=== PATIENT | female | born 1935 ===

== ENCOUNTER 2020-05-06 23:36 | Inpatient (IN) | payer MEDICARE, OTHER ==
[2020-05-07] MEDS ORDERED: Non-Formulary Item 1 EACH (Fluticasone Propionate [Flovent Diskus] 50 MCG Blst.W.Dev) IH PRN (07:46)
[2020-05-07] MEDS ORDERED: Mometasone Furoate 120 PUFF 220 MCG INH PRN (08:00)
[2020-05-07] MEDS ORDERED: Docusate 100 MG CAP PO SCH (09:00)
[2020-05-07] MEDS ORDERED: NYSTATIN 1000000 UNIT MC SCH (09:00)
[2020-05-07] MEDS ORDERED: Non-Formulary Item 1 EACH (Magnesium Oxide [Magnesium] 400 MG Capsule) PO SCH (09:00)
[2020-05-07] MEDS ORDERED: Non-Formulary Item 1 EACH (Esomeprazole Magnesium [Esomeprazole Magnesium] 20 MG Capsule. PO SCH (09:00)
[2020-05-07] MEDS ORDERED: FLU VACC QS2020-21(65YR UP)/PF 240 MCG/0.7 ML SYRINGE IM ONE (09:00)
[2020-05-07] MEDS ORDERED: AMLODIPINE BESYLATE 10 MG PO SCH (09:00)
[2020-05-07] MEDS: Milk Of Magnesia 30 ML UDCUP PO SCH (09:16)
[2020-05-07] MEDS: Nystatin Powder 15 GM BOT TOP SCH ×3 (09:16→20:21)
[2020-05-07] MEDS: Hydrochlorothiazide 25 MG TAB PO SCH (09:16)
[2020-05-07] MEDS: Amlodipine 5 MG TAB PO SCH (09:17)
[2020-05-07] MEDS: Magnesium Oxide 400 MG TAB PO SCH (09:17)
[2020-05-07] MEDS: Docusate 100 MG CAP PO SCH ×2 (09:18→20:20)
[2020-05-07] MEDS: [UNRECOGNIZED DRUG - OTHER] EA EYE SCH ×2 (09:19→20:22)
[2020-05-07 09:38] LABS: ALT (SGPT) 20 U/L (8-55); AST (SGOT) 28 U/L (5-34); Albumin 3.4 g/dL (3.4-4.8); Alkaline Phosphatase 112 U/L (40-110); Anion Gap 14 mmol/L (10-20); BUN (Urea Nitrogen) 25 mg/dL (9.8-20.1); Bilirubin, Total 0.2 mg/dL (0.2-1.2); Calc. Creatinine Clearance 0 mL/min (70-130); Calcium 8.7 mg/dL (7.8-10.44); Carbon Dioxide 26 mmol/L (23-31); Chloride 103 mmol/L (98-107); Estimated GFR-MDRD 75; Globulin 3.3 g/dL (2.4-3.5); Glucose 117 mg/dL (83-110); Potassium 3.8 mmol/L (3.5-5.1); Protein, Total 6.7 g/dL (6.0-8.3); Sodium 139 mmol/L (136-145)
[2020-05-07 10:07] LABS: Hemoglobin 12.8 g/dL (12.0-16.0); MDiff Complete? YES; Manual Diff?? YES; Mean Corpuscular HGB CONC 30.6 g/dL (32.0-36.0); Mean Corpuscular Hemoglobin 26.7 pg (27.0-31.0); Mean Corpuscular Volume 87.1 fL (78.0-98.0); Neutrophil 57 % (42-75); Platelet Count 195 thou/uL (130-400); RBC Distribution Width 14.8 % (11.5-14.5); Red Blood Cell (RBC) Count 4.78 mill/uL (4.20-5.40); White Blood Cell (WBC) Count 3.6 thou/uL (4.8-10.8)
[2020-05-07 10:08] LABS: Lymphocytes 31 % (21-51); Monocytes 12 % (0-10)
[2020-05-07 10:09] LABS: RBC Morphology Normal
[2020-05-07] MEDS: Acetaminophen 325 MG TAB PO SCH ×3 (12:08→23:01)
[2020-05-07] MEDS ORDERED: Non-Formulary Item 1 EACH (Aluminum & Magnesium Hydroxide [Maalox] 30 ML Udcup) PO SCH (14:00)
[2020-05-07] MEDS ORDERED: BUSPIRONE HCL 10 MG PO SCH (14:00)
[2020-05-07] MEDS: busPIRone HCl 5 MG TAB PO SCH ×2 (14:12→20:20)
[2020-05-07] MEDS: Mag-Al Plus 1200 MG/1200 MG/120 MG/30 ML UDCUP PO SCH ×2 (15:13→20:22)
[2020-05-07] MEDS ORDERED: MINERAL OIL EA EYE SCH (18:30)
[2020-05-07] MEDS ORDERED: MINERAL OIL LIGHT EA EYE SCH (18:30)
[2020-05-07] MEDS ORDERED: [UNRECOGNIZED DRUG - OTHER] EA EYE SCH (18:30)
[2020-05-07] MEDS: Donepezil HCl 10 MG TAB PO SCH (20:21)
[2020-05-08] MEDS: Acetaminophen 325 MG TAB PO SCH ×4 (05:36→23:15)
[2020-05-08] MEDS: Mag-Al Plus 1200 MG/1200 MG/120 MG/30 ML UDCUP PO SCH ×3 (05:36→20:06)
[2020-05-08] MEDS: busPIRone HCl 5 MG TAB PO SCH ×3 (05:36→20:07)
[2020-05-08] MEDS: Docusate 100 MG CAP PO SCH ×2 (08:13→20:03)
[2020-05-08] MEDS: Milk Of Magnesia 30 ML UDCUP PO SCH (08:13)
[2020-05-08] MEDS: Magnesium Oxide 400 MG TAB PO SCH (08:14)
[2020-05-08] MEDS: Hydrochlorothiazide 25 MG TAB PO SCH (08:14)
[2020-05-08] MEDS: Amlodipine 5 MG TAB PO SCH (08:15)
[2020-05-08] MEDS: [UNRECOGNIZED DRUG - OTHER] EA EYE SCH ×2 (08:16→19:33)
[2020-05-08] MEDS: Nystatin Powder 15 GM BOT TOP SCH ×3 (08:23→20:07)
--- NOTE | 2020-05-08 16:03 | PRG ---
DATE OF SERVICE: 05/08/2020 SUBJECTIVE: Ms. Harman is resting in bed. Denies any complaints. Denies any chest pain or shortness of breath. Discussed with nursing. Tolerating her p.o. intake. No family at bedside. OBJECTIVE: VITAL SIGNS: She is afebrile, heart rate 59, respirations 19, oxygen saturation 98% on room air, blood pressure 133/60. CARDIOVASCULAR SYSTEM: S1 and S2 plus. RESPIRATORY SYSTEM: Normal vesicular breath sounds heard in all lung diaz. ABDOMEN: Soft and nontender. Bowel sounds heard in all quadrants. EXTREMITIES: Without cyanosis or clubbing. CENTRAL NERVOUS SYSTEM: Awake and responsive. Mild cognitive deficits are noted. Grossly nonfocal. IMPRESSION: 1. COVID-19 positive. 2. Hypertension. 3. Dementia. 4. Possible anxiety. 5. Reactive airway disease, possible asthma. PLAN: 1. Continue current medications. 2. Nutritional support. 3. Respiratory droplet precautions. 4. Monitor respiratory status for any symptoms. 5. Routine laboratory values. 6. Continue home medications. 7. DVT prophylaxis with PlexiPulses. 8. Decubitus precautions. 9. Stress ulcer prophylaxis. Job ID: [id number]
[2020-05-08] MEDS: Donepezil HCl 10 MG TAB PO SCH (20:03)
[2020-05-09] MEDS: Mag-Al Plus 1200 MG/1200 MG/120 MG/30 ML UDCUP PO SCH ×3 (05:09→20:03)
[2020-05-09] MEDS: Acetaminophen 325 MG TAB PO SCH ×4 (05:09→23:17)
[2020-05-09] MEDS: busPIRone HCl 5 MG TAB PO SCH ×3 (05:09→20:03)
[2020-05-09] MEDS: Hydrochlorothiazide 25 MG TAB PO SCH (08:12)
[2020-05-09] MEDS: Milk Of Magnesia 30 ML UDCUP PO SCH (08:13)
[2020-05-09] MEDS: Docusate 100 MG CAP PO SCH ×2 (08:13→20:04)
[2020-05-09] MEDS: Magnesium Oxide 400 MG TAB PO SCH (08:13)
[2020-05-09] MEDS: Amlodipine 5 MG TAB PO SCH (08:13)
[2020-05-09] MEDS: Nystatin Powder 15 GM BOT TOP SCH ×3 (08:14→20:03)
[2020-05-09] MEDS: [UNRECOGNIZED DRUG - OTHER] EA EYE SCH ×2 (08:15→20:04)
--- NOTE | 2020-05-09 16:51 | PRG ---
DATE OF SERVICE: 05/09/2020 SUBJECTIVE: Ms. Harman is doing the same, resting in bed. She had her lunch. Denies any chest pain or shortness of breath. Denies any fever or chills. Discussed with nursing. OBJECTIVE: VITAL SIGNS: She is afebrile, heart rate 61, respirations 18, oxygen saturation 97% on room air, blood pressure 135/60. CARDIOVASCULAR: S1 and S2 plus. RESPIRATORY: Normal vesicular breath sounds. ABDOMEN: Soft and nontender. Bowel sounds heard in all quadrants. EXTREMITIES: Without cyanosis or clubbing. CENTRAL NERVOUS SYSTEM: Grossly nonfocal. IMPRESSION: 1. COVID-19 infection, asymptomatic. 2. Dementia. 3. Hypertension. 4. Possible asthma. 5. Anxiety and depression. PLAN: 1. Continue current medications. 2. Nutritional support with low-sodium diet. 3. Respiratory droplet precautions. 4. Monitor respiratory status. 5. DVT prophylaxis with PlexiPulses. 6. Decubitus precaution. 7. Stress ulcer prophylaxis. 8. Dr. Winston [facility]. Job ID: [id number]
[2020-05-09] MEDS: Donepezil HCl 10 MG TAB PO SCH (20:03)
[2020-05-10] MEDS: Acetaminophen 325 MG TAB PO SCH ×3 (05:13→17:51)
[2020-05-10] MEDS: busPIRone HCl 5 MG TAB PO SCH ×3 (05:13→21:03)
[2020-05-10] MEDS: Mag-Al Plus 1200 MG/1200 MG/120 MG/30 ML UDCUP PO SCH ×3 (05:13→21:02)
--- NOTE | 2020-05-10 07:08 | HP ---
HISTORY OF PRESENT ILLNESS: The patient is a demented elderly lady with hypertension and reactive airways disease, who has been found to be COVID positive. She has been unable to be isolated at the [facility] and therefore was transferred to the hospital for isolation. She also is needing physical therapy, but is unable to have this at the [facility] because of the lack of personal protection equipment. At this time, she is awake and alert, being fed, but is eating well. She is having no cough or shortness of breath. She does have a rare wheeze and has a history of asthma. PAST MEDICAL HISTORY: Only remarkable for hypertension, dementia, asthma, and anxiety. SOCIAL HISTORY: She lives in the [facility]. She is a nonsmoker, nondrinker. FAMILY MEDICAL HISTORY: Noncontributory. REVIEW OF SYSTEMS: Completely negative, but the patient is a poor historian secondary to dementia. PHYSICAL EXAMINATION: GENERAL: The patient is an elderly white female, in no acute distress. She is oriented to person, but not to place and time. VITAL SIGNS: Showed to have blood pressure of 121/58, pulse 67, O2 saturations 98% on room air. She is afebrile. HEENT: Pupils are equal, round, and reactive to light and accommodation. Sclerae are anicteric. Conjunctivae pale. Oral mucous membranes well hydrated. NECK: Supple. There are no nodes or masses. JVP is not elevated. LUNGS: Clear. CARDIAC: Showed regular rhythm. ABDOMEN: Soft and nontender. NEUROLOGICAL: Shows no focal findings. LABORATORY DATA: Shows a white count of 3600, hematocrit 41, hemoglobin 12. Sodium is 139, potassium 3.8, chloride 103, bicarb 26, BUN 25, creatinine 0.74, glucose 117, alkaline phosphatase 112, total protein 6.7, albumin 3.4, and globulin 3.3. ASSESSMENT AND PLAN: An 84-year-old white female, with history of asthma, recent diagnosis of COVID infection, who was admitted to swing bed for PT and for isolation. She will be continued on her home medications of amlodipine 10 mg daily, omeprazole 10 mg daily, hydrochlorothiazide 25 mg daily, Namenda 10 mg twice daily, Seroquel 25 mg daily as well as KCl 20 mEq daily. She will also be given stress ulcer prophylaxis with pantoprazole but will not be given DVT prophylaxis because of fall risk. Her prognosis is somewhat guarded because of an elderly age and comorbidities and will be monitored closely for deterioration and need for a more intensive respiratory therapy. She is not to be resuscitated and has a hospital advance directive. Job ID: [id number]
[2020-05-10] MEDS: Docusate 100 MG CAP PO SCH ×2 (08:10→21:03)
[2020-05-10] MEDS: Hydrochlorothiazide 25 MG TAB PO SCH (08:10)
[2020-05-10] MEDS: Amlodipine 5 MG TAB PO SCH (08:10)
[2020-05-10] MEDS: Magnesium Oxide 400 MG TAB PO SCH (08:11)
[2020-05-10] MEDS: Milk Of Magnesia 30 ML UDCUP PO SCH (08:11)
[2020-05-10] MEDS: Nystatin Powder 15 GM BOT TOP SCH ×3 (08:11→21:04)
[2020-05-10] MEDS: [UNRECOGNIZED DRUG - OTHER] EA EYE SCH ×2 (08:12→21:04)
--- NOTE | 2020-05-10 13:14 | PRG ---
DATE OF SERVICE: 05/07/2020 SUBJECTIVE: The patient is lying in bed, resting well with no complaints. Has been eating well with no cough, shortness of breath. OBJECTIVE: VITAL SIGNS: Temperature is 97.8, pulse 75, respirations 18, O2 sats 97% on room air, blood pressure 156/80. LUNGS: Clear. CARDIAC: Showed regular rhythm. ABDOMEN: Soft and nontender. NEUROLOGIC: Shows no focal findings. ASSESSMENT: 1. Asymptomatic COVID-19 infection. 2. Dementia. 3. Deconditioning. 4. Possible asthma. PLAN: PT, OT consult. DVT and stress ulcer prophylaxis. Continue respiratory isolation. Job ID: [id number]
[2020-05-10] MEDS: Donepezil HCl 10 MG TAB PO SCH (21:02)
[2020-05-11] MEDS: Acetaminophen 325 MG TAB PO SCH ×4 (00:35→17:43)
[2020-05-11] MEDS: Mag-Al Plus 1200 MG/1200 MG/120 MG/30 ML UDCUP PO SCH ×3 (06:02→21:04)
[2020-05-11] MEDS: busPIRone HCl 5 MG TAB PO SCH ×3 (06:03→21:04)
[2020-05-11] MEDS: Amlodipine 5 MG TAB PO SCH (08:01)
[2020-05-11] MEDS: Milk Of Magnesia 30 ML UDCUP PO SCH (08:03)
[2020-05-11] MEDS: Docusate 100 MG CAP PO SCH ×2 (08:03→21:04)
[2020-05-11] MEDS: Hydrochlorothiazide 25 MG TAB PO SCH (08:03)
[2020-05-11] MEDS: Magnesium Oxide 400 MG TAB PO SCH (08:03)
[2020-05-11] MEDS: Nystatin Powder 15 GM BOT TOP SCH ×3 (08:04→21:46)
[2020-05-11] MEDS: [UNRECOGNIZED DRUG - OTHER] EA EYE SCH (08:04)
--- NOTE | 2020-05-11 09:23 | PRG ---
DATE OF SERVICE: 05/10/2020 SUBJECTIVE: The patient is working with physical therapy in her room. She is confused, but is cooperating and moving in the bed. She is still isolated secondary to COVID. She has no cough, fever, chills, nausea, or anorexia. She is significantly demented and no significant history obtained otherwise. OBJECTIVE: VITAL SIGNS: Show temperature is 99, pulse 76, respirations 20, O2 saturations 95% on room air, blood pressure 115/53. LUNGS: Clear. CARDIAC: Shows regular rhythm. ABDOMEN: Soft and nontender. ASSESSMENT: 1. Resolving COVID infection with no evidence of pneumonia, respiratory distress. 2. Severe dementia, slowly progressive. 3. Deconditioning, improving with PT. 4. History of asthma with no evidence for recurrence. PLAN: 1. Continue PT/OT. 2. Continue DVT and stress ulcer prophylaxis. 3. Continue respiratory isolation. Job ID: [id number]
[2020-05-11] MEDS: Artificial Tear Sol 15 ML BOT EA EYE SCH (21:03)
[2020-05-11] MEDS: Donepezil HCl 10 MG TAB PO SCH (21:04)
[2020-05-12] MEDS: Acetaminophen 325 MG TAB PO SCH ×5 (00:40→23:51)
[2020-05-12] MEDS: Mag-Al Plus 1200 MG/1200 MG/120 MG/30 ML UDCUP PO SCH ×3 (06:01→20:58)
[2020-05-12] MEDS: busPIRone HCl 5 MG TAB PO SCH ×3 (06:01→20:58)
[2020-05-12] MEDS: Artificial Tear Sol 15 ML BOT EA EYE SCH ×2 (08:50→20:58)
[2020-05-12] MEDS: Nystatin Powder 15 GM BOT TOP SCH ×3 (08:50→20:58)
[2020-05-12] MEDS: Amlodipine 5 MG TAB PO SCH (08:51)
[2020-05-12] MEDS: Docusate 100 MG CAP PO SCH ×2 (08:51→20:58)
[2020-05-12] MEDS: Magnesium Oxide 400 MG TAB PO SCH (08:51)
[2020-05-12] MEDS: Hydrochlorothiazide 25 MG TAB PO SCH (08:51)
[2020-05-12] MEDS: Milk Of Magnesia 30 ML UDCUP PO SCH (08:57)
[2020-05-12] MEDS: Donepezil HCl 10 MG TAB PO SCH (20:59)
[2020-05-13] MEDS: busPIRone HCl 5 MG TAB PO SCH ×3 (05:24→23:15)
[2020-05-13] MEDS: Acetaminophen 325 MG TAB PO SCH ×4 (05:24→23:14)
[2020-05-13] MEDS: Mag-Al Plus 1200 MG/1200 MG/120 MG/30 ML UDCUP PO SCH ×3 (05:24→23:14)
[2020-05-13] MEDS: Artificial Tear Sol 15 ML BOT EA EYE SCH ×2 (08:08→21:33)
[2020-05-13] MEDS: Nystatin Powder 15 GM BOT TOP SCH ×3 (08:08→21:33)
[2020-05-13] MEDS: Milk Of Magnesia 30 ML UDCUP PO SCH (08:08)
[2020-05-13] MEDS: Amlodipine 5 MG TAB PO SCH (08:09)
[2020-05-13] MEDS: Docusate 100 MG CAP PO SCH ×2 (08:09→21:18)
[2020-05-13] MEDS: Magnesium Oxide 400 MG TAB PO SCH (08:09)
[2020-05-13] MEDS: Hydrochlorothiazide 25 MG TAB PO SCH (08:14)
--- NOTE | 2020-05-13 20:26 | PRG ---
DATE OF SERVICE: 05/13/2020 SUBJECTIVE: The patient feels well, sitting up, in fact answered questions today, in no distress, has not been attempting to get out of the bed. Has been eating well. She has no cough. OBJECTIVE: VITAL SIGNS: Show her temperature is 96.8, pulse respirations 20, O2 saturations 95% on room air, blood pressure 122/59. LUNGS: Clear. CARDIAC: Shows regular rhythm. ABDOMEN: Soft and nontender. ASSESSMENT: 1. Resolving COVID infection with no evidence of pneumonia with 10 days of isolation coming up to be finished on May 16. 2. Hypertension, controlled to goal. 3. Dementia, stable, but not limiting therapy. Job ID: [id number]
--- NOTE | 2020-05-13 20:29 | PRG ---
DATE OF SERVICE: 05/11/2020 SUBJECTIVE: The patient is lying in the bed, resting well with. No complaints, cough. She is awake and alert, but only oriented to person and does not answer questions appropriately. OBJECTIVE: VITAL SIGNS: Shows her temperature is 97, pulse 72, respirations 20, O2 sats 98% on room air, blood pressure 115/70. LUNGS: Clear. CARDIAC: Shows regular rhythm. ABDOMEN: Soft and nontender. SKIN/EXTREMITIES: Showed no edema. ASSESSMENT: 1. Stable COVID-19, no evidence of pneumonia or respiratory distress. 2. Stable dementia. 3. Hypertension, controlled to goal. PLAN: 1. Continue PT, OT. 2. Continue to monitor in isolation for current COVID infection and pneumonia. Job ID: [id number]
--- NOTE | 2020-05-13 20:35 | PRG ---
DATE OF SERVICE: 05/12/2020 SUBJECTIVE: The patient lying in the bed, eating well. No cough, respiratory distress, being fed by the aide. OBJECTIVE: VITAL SIGNS: Blood pressure is 124/58, temperature is 97.8, pulse 62, respirations 18, O2 saturations 98% on room air. LUNGS: Clear. CARDIAC: Regular rhythm. ABDOMEN: Soft and nontender. ASSESSMENT: 1. Stable dementia. 2. COVID-19 infection with no evidence of pneumonia. 3. Stable hypertension. PLAN: 1. Continue to monitor for exacerbation of COVID-19 pneumonia. 2. Continue isolation 10 days on diagnosis. 3. New labs, daily monitor vital signs closely. Job ID: [id number]
[2020-05-13] MEDS: Donepezil HCl 10 MG TAB PO SCH (21:18)
[2020-05-14] MEDS: Acetaminophen 325 MG TAB PO SCH ×3 (05:44→17:27)
[2020-05-14] MEDS: Mag-Al Plus 1200 MG/1200 MG/120 MG/30 ML UDCUP PO SCH ×3 (05:44→21:03)
[2020-05-14] MEDS: busPIRone HCl 5 MG TAB PO SCH ×3 (05:44→21:03)
[2020-05-14] MEDS: Nystatin Powder 15 GM BOT TOP SCH ×3 (09:05→21:03)
[2020-05-14] MEDS: Milk Of Magnesia 30 ML UDCUP PO SCH (09:05)
[2020-05-14] MEDS: Docusate 100 MG CAP PO SCH ×2 (09:06→21:04)
[2020-05-14] MEDS: Amlodipine 5 MG TAB PO SCH (09:06)
[2020-05-14] MEDS: Magnesium Oxide 400 MG TAB PO SCH (09:06)
[2020-05-14] MEDS: Hydrochlorothiazide 25 MG TAB PO SCH (09:07)
[2020-05-14] MEDS: Artificial Tear Sol 15 ML BOT EA EYE SCH ×2 (09:08→21:03)
--- NOTE | 2020-05-14 18:49 | PRG ---
DATE OF SERVICE: 05/14/2020 SUBJECTIVE: The patient is sitting up in bed, feeding herself, awake and alert and in no distress. No cough or shortness of breath. OBJECTIVE: VITAL SIGNS: Her vital signs show temperature of 96.8, pulse 54, respirations 18, O2 sats 96% on room air, and blood pressure 142/70. LUNGS: Clear. CARDIAC: Showed regular rhythm. ABDOMEN: Soft and nontender. SKIN/EXTREMITIES: Showed no edema, clubbing, or cyanosis. ASSESSMENT: 1. COVID-19 infection with no evidence of pneumonia with 10 days of isolation to finish on May 17. 2. Stable dementia. 3. Stable hypertension. PLAN: Continue isolation until May 17 monitor for exacerbation of COVID-19. Job ID: [id number]
[2020-05-14] MEDS: Donepezil HCl 10 MG TAB PO SCH (21:03)
[2020-05-15] MEDS: Acetaminophen 325 MG TAB PO SCH ×4 (00:38→18:36)
[2020-05-15] MEDS: busPIRone HCl 5 MG TAB PO SCH ×3 (05:41→21:07)
[2020-05-15] MEDS: Mag-Al Plus 1200 MG/1200 MG/120 MG/30 ML UDCUP PO SCH ×3 (05:41→21:07)
[2020-05-15] MEDS: Amlodipine 5 MG TAB PO SCH (09:35)
[2020-05-15] MEDS: Artificial Tear Sol 15 ML BOT EA EYE SCH ×2 (09:36→20:31)
[2020-05-15] MEDS: Docusate 100 MG CAP PO SCH ×2 (09:36→20:32)
[2020-05-15] MEDS: Milk Of Magnesia 30 ML UDCUP PO SCH (09:36)
[2020-05-15] MEDS: Hydrochlorothiazide 25 MG TAB PO SCH (09:36)
[2020-05-15] MEDS: Magnesium Oxide 400 MG TAB PO SCH (09:37)
[2020-05-15] MEDS: Nystatin Powder 15 GM BOT TOP SCH ×3 (09:37→20:31)
[2020-05-15] MEDS: Donepezil HCl 10 MG TAB PO SCH (20:30)
[2020-05-16] MEDS: Acetaminophen 325 MG TAB PO SCH ×4 (02:18→18:40)
[2020-05-16 05:46] VITALS: BMI 23.1
[2020-05-16] MEDS: busPIRone HCl 5 MG TAB PO SCH ×4 (05:47→21:30)
[2020-05-16] MEDS: Mag-Al Plus 1200 MG/1200 MG/120 MG/30 ML UDCUP PO SCH ×3 (05:47→21:30)
[2020-05-16] MEDS: Milk Of Magnesia 30 ML UDCUP PO SCH (09:13)
[2020-05-16] MEDS: Amlodipine 5 MG TAB PO SCH (09:13)
[2020-05-16] MEDS: Artificial Tear Sol 15 ML BOT EA EYE SCH ×3 (09:14→21:32)
[2020-05-16] MEDS: Magnesium Oxide 400 MG TAB PO SCH (09:15)
[2020-05-16] MEDS: Docusate 100 MG CAP PO SCH ×2 (09:15→21:30)
[2020-05-16] MEDS: Nystatin Powder 15 GM BOT TOP SCH ×3 (09:15→21:32)
[2020-05-16] MEDS: Hydrochlorothiazide 25 MG TAB PO SCH (09:15)
[2020-05-16] MEDS: Donepezil HCl 10 MG TAB PO SCH (21:30)
[2020-05-17] MEDS: busPIRone HCl 5 MG TAB PO SCH ×3 (05:55→21:25)
[2020-05-17] MEDS: Mag-Al Plus 1200 MG/1200 MG/120 MG/30 ML UDCUP PO SCH ×3 (06:00→21:25)
[2020-05-17] MEDS: Acetaminophen 325 MG TAB PO SCH ×4 (06:00→18:39)
[2020-05-17] MEDS: Magnesium Oxide 400 MG TAB PO SCH (09:29)
[2020-05-17] MEDS: Docusate 100 MG CAP PO SCH ×2 (09:29→21:24)
[2020-05-17] MEDS: Milk Of Magnesia 30 ML UDCUP PO SCH (09:29)
[2020-05-17] MEDS: Hydrochlorothiazide 25 MG TAB PO SCH (09:29)
[2020-05-17] MEDS: Nystatin Powder 15 GM BOT TOP SCH ×3 (09:30→21:25)
[2020-05-17] MEDS: Artificial Tear Sol 15 ML BOT EA EYE SCH ×2 (09:30→21:24)
[2020-05-17] MEDS: Amlodipine 5 MG TAB PO SCH (09:30)
[2020-05-17] MEDS: Donepezil HCl 10 MG TAB PO SCH (21:25)
[2020-05-18] MEDS: Acetaminophen 325 MG TAB PO SCH ×4 (00:14→18:00)
[2020-05-18] MEDS: busPIRone HCl 5 MG TAB PO SCH ×3 (05:28→21:19)
[2020-05-18] MEDS: Mag-Al Plus 1200 MG/1200 MG/120 MG/30 ML UDCUP PO SCH ×3 (05:29→21:19)
--- NOTE | 2020-05-18 06:11 | PRG ---
DATE OF SERVICE: 05/17/2020 SUBJECTIVE: The patient has no change in her status, awake, alert, eating. No cough. Respiratory distress. Still pleasantly confused. OBJECTIVE: Shows: VITAL SIGNS: Temperature is 96, pulse 69, respirations 20, O2 sats 94% on room air, blood pressure is 111/54. LUNGS: Clear. CARDIAC EXAMINATION: Shows regular rhythm. ABDOMEN: Soft and nontender. ASSESSMENT: Coronavirus disease 2019 infection, resolved with no symptoms of shortness of breath, cough, fever, and is isolated for 10 days finishing tonight and will be stable to be discharged back to the [facility] tomorrow. PLAN: Discharge to [facility] tomorrow. Job ID: [id number]
[2020-05-18] MEDS: Milk Of Magnesia 30 ML UDCUP PO SCH (07:51)
[2020-05-18] MEDS: Docusate 100 MG CAP PO SCH ×2 (07:52→20:46)
[2020-05-18] MEDS: Hydrochlorothiazide 25 MG TAB PO SCH (07:53)
[2020-05-18] MEDS: Magnesium Oxide 400 MG TAB PO SCH (07:53)
[2020-05-18] MEDS: Amlodipine 5 MG TAB PO SCH (07:53)
[2020-05-18] MEDS: Nystatin Powder 15 GM BOT TOP SCH ×3 (07:59→20:45)
[2020-05-18] MEDS: Artificial Tear Sol 15 ML BOT EA EYE SCH ×2 (08:00→20:45)
[2020-05-18 19:59] VITALS: TEMP 97.7
[2020-05-18] MEDS: Donepezil HCl 10 MG TAB PO SCH (20:46)
[2020-05-19] MEDS: Acetaminophen 325 MG TAB PO SCH ×2 (01:21→06:01)
[2020-05-19] MEDS: busPIRone HCl 5 MG TAB PO SCH (06:00)
[2020-05-19] MEDS: Mag-Al Plus 1200 MG/1200 MG/120 MG/30 ML UDCUP PO SCH (06:01)
--- NOTE | 2020-05-19 06:20 | PRG ---
DATE OF SERVICE: 05/18/2020 SUBJECTIVE: The patient is alert, confused, but in no distress. Eating breakfast with no difficulty. OBJECTIVE: Shows: VITAL SIGNS: Temperature is 97, pulse 62, respirations 18, O2 sats 100% on room air, blood pressure 134/63. LUNGS: Clear. CARDIAC: Showed regular rhythm. ASSESSMENT: Resolving COVID-19 infection. PLAN: [facility]. The patient has received 10 days of isolation with no evidence of infection. Job ID: [id number]
[2020-05-19] MEDS: Amlodipine 5 MG TAB PO SCH (08:17)
[2020-05-19] MEDS: Hydrochlorothiazide 25 MG TAB PO SCH (08:18)
[2020-05-19] MEDS: Milk Of Magnesia 30 ML UDCUP PO SCH (08:18)
[2020-05-19] MEDS: Magnesium Oxide 400 MG TAB PO SCH (08:18)
[2020-05-19] MEDS: Docusate 100 MG CAP PO SCH (08:18)
[2020-05-19] MEDS: Artificial Tear Sol 15 ML BOT EA EYE SCH (08:18)
[2020-05-19] MEDS: Nystatin Powder 15 GM BOT TOP SCH (08:19)
[2020-05-19 09:50] VITALS: BP 161/92
--- NOTE | 2020-05-19 12:20 | DIS ---
DATE OF ADMISSION: 05/06/2020 DATE OF DISCHARGE: 05/19/2020 DATE OF TRANSFER: To [facility] on May 19, 2020. FINAL DIAGNOSES: 1. COVID-19 infection with no evidence of pneumonia. 2. Hypertension, controlled to goal. 3. Dementia, stable. 4. Deconditioning, improved with therapy. 5. Reactive airways disease. HOSPITAL COURSE: The patient is a very pleasant 84-year-old demented female, living in [facility] because of her dementia, who had been requiring assistance for ADLs but has developed a COVID-19 infection in [facility] and, therefore, was transferred to [facility] for continued therapy that she was receiving there for isolation. She did well and in fact improved here with increasing strength, ability to care for herself, was able to maintain ADLs with assistance as far as eating, did require toileting and ambulation assistance, but was working with therapy. She had a full 14 days in isolation with no cough, fever, shortness of breath, sputum production. Her laboratories remained stable as did her vital signs with discharge vital signs show a temperature of 97.7, pulse 73, respirations 18, O2 sats 96% on room air, blood pressure 123/53. [facility] her prehospitalization meds of donepezil 10 mg nightly, buspirone 10 mg every 8 hours, Nexium 20 mg daily, inhaler 50 mcg q.12h as needed, hydrochlorothiazide 25 daily, Namenda 10 mg twice daily, and sertraline 25 mg nightly. Job ID: [id number]
== END 2020-05-19 11:51 | DRG 179 ==
LOC: NAV ACUTE 23:36
PROVIDERS: ADMIT Internal Medicine; ATTEND Internal Medicine
PROC: 8E0ZXY6 Isolation (ICD-10-PCS; principal; 2020-05-06)
DX: U07.1 COVID-19 (principal); I10 Essential (primary) hypertension; F03.90 Unspecified dementia, unspecified severity, without behavioral disturbance, psychotic disturbance, mood disturbance, and anxiety; J45.909 Unspecified asthma, uncomplicated; F41.9 Anxiety disorder, unspecified; R41.89 Other symptoms and signs involving cognitive functions and awareness; F32.9 Major depressive disorder, single episode, unspecified; R53.81 Other malaise
CPT/HCPCS: 80053; 85025